=== PATIENT | female | born 1945 | race Caucasian/White ===

== ENCOUNTER 2018-01-02 12:21 | Emergency (ER) | payer OTHER ==
[~2018-01-02] VITALS: Ht 167.6 cm; Wt 108.9 kg
[2018-01-02] MEDS ORDERED: SYNTHROID175 MCG PO (12:49)
[2018-01-02] MEDS ORDERED: MAXIDEX5 ML OP (12:51)
[2018-01-02] MEDS ORDERED: KERLONE PO (12:51)
[2018-01-02] MEDS ORDERED: PROTONIX40 MG PO (12:52)
== END 2018-01-02 19:00 | disposition home or self-care (01) ==
LOC: ER 12:21
DX: K57.30 Diverticulosis of large intestine without perforation or abscess without bleeding (principal); N28.1 Cyst of kidney, acquired; R10.2 Pelvic and perineal pain

== ENCOUNTER → 2018-08-06 | Emergency (ER) | payer OTHER ==
[~2018-08-06] VITALS: Ht 167.6 cm; Wt 117.9 kg
[~2018-08-06] MED LIST: KERLONE PO; MAXIDEX5 ML; MAXIDEX5 ML OP; PROTONIX40 MG PO; SYNTHROID175 MCG PO
== END | disposition home or self-care (01) ==
LOC: ER 12:04
DX: R42 Dizziness and giddiness (principal)

== ENCOUNTER 2021-01-09 08:40 | Emergency (ER) | payer OTHER ==
[~2021-01-09] VITALS: Ht 165.1 cm; Wt 112.5 kg
[2021-01-09] MEDS ORDERED: SYNTHROID200 MCG PO (08:58)
[2021-01-09] MEDS ORDERED: LISINOPRIL10 MG PO (09:00)
[2021-01-09] MEDS ORDERED: CIPRO500 MG PO (16:12)
[2021-01-09] MEDS ORDERED: CELEBREX100 MG PO (16:12)
[2021-01-09] MEDS ORDERED: INTESTINEX680 M1 PO (16:12)
[2021-01-09] MEDS ORDERED: LEVSIN/SL0.125 MG PO (16:12)
[2021-01-09] MEDS ORDERED: FLAGYL500MG PO (16:12)
[2021-01-09] MEDS ORDERED: PEPCID AC20 MG PO (16:12)
== END 2021-01-09 17:53 ==
LOC: ER 08:40
DX: R10.31 Right lower quadrant pain (principal); R10.32 Left lower quadrant pain